=== PATIENT | female | born 1955 | race Caucasian/White ===

== ENCOUNTER 2022-03-27 10:31 | Emergency (ER) | payer MEDICARE, BC | END 2022-03-27 11:32 | disposition home or self-care (01) | LOC: JP.ED 10:31 | DX: I10 Essential (primary) hypertension (principal); G44.209 Tension-type headache, unspecified, not intractable; Z79.82 Long term (current) use of aspirin; Z79.899 Other long term (current) drug therapy | CPT/HCPCS: 99283 ==